=== PATIENT | male | born 1985 | race American Indian/Alaskan Native ===

== ENCOUNTER 2016-12-29 15:57 | Emergency (ER) | payer SELFPAY ==
[2016-12-29 16:30] VITALS: BP 126/80
--- NOTE | 2016-12-29 16:32 | Emergency Department Report ---
Entered by SASHA CALLES, acting as scribe for CRISTIN DAVID NP. Chief Complaint: Abdominal Pain Stated Complaint: abd pain Time Seen by Provider: 12/29/16 16:29 - HPI History of Present Illness: 31 y/o male presents with RUQ abd pain that started 3 days ago. Sx include chest "tightness", coughing and nausea. Pt endorses ETOH and tobacco use. - ROS Review of Systems: +RUQ abd pain +chest tightness +nausea +cough - Exam Vital Signs: Vital Signs 12/29/16 16:26 Temperature 98.3 F Pulse Rate 71 Respiratory 18 Rate Blood Pressure 126/80 O2 Sat by Pulse 100 Oximetry Physical Exam: Abd: soft, RUQ and epigastric tenderness Chest: chest wall non-tender Resp: no acute respiratory distress MSE screening note: Focused history and physical exam performed. Due to findings the following was ordered: xr, us, lab ED Disposition for MSE Condition: Stable This documentation as recorded by the scribe,SASHA CALLES,accurately reflects the service I personally performed and the decisions made by FRANKIE mccain TRACY M, NP.
[2016-12-29 16:41] LABS: Basophils % (Auto) 0.6 % (0.0-1.8); Hematocrit 42.2 % (35.5-45.6); Hemoglobin 13.7 gm/dl (11.8-15.2); Mean Corpuscular HGB Conc 32 % (32-34); Mean Corpuscular Hemoglobin 29 pg (28-32); Mean Corpuscular Volume 89 fl (84-94); Platelet Count 167 K/mm3 (140-440); Red Blood Count 4.76 M/mm3 (3.65-5.03); Red Cell Distribution Width 14.3 % (13.2-15.2); White Blood Count 6.2 K/mm3 (4.5-11.0)
[2016-12-29 19:08] LABS: Alanine Aminotransferase 12 units/L (7-56); Albumin 4.6 g/dL (3.9-5); Albumin/Globulin Ratio 2.1 %; Alkaline Phosphatase 69 units/L (35-129); Anion Gap 19 mmol/L; Blood Urea Nitrogen 14 mg/dL (9-20); Calcium 9.1 mg/dL (8.4-10.2); Carbon Dioxide 24 mmol/L (22-30); Chloride 106.1 mmol/L (98-107); Glucose 78 mg/dL (75-100); Lipase 28 units/L (13-60); Potassium 4.3 mmol/L (3.6-5.0); Sodium 145 mmol/L (137-145); Total Protein 6.8 g/dL (6.3-8.2)
[2016-12-29 19:32] LABS: Bilirubin,Urine NEG (Negative); Blood,Urine NEG (Negative); Ketones,Urine NEG (Negative); Leukocyte Esterase,Urine NEG (Negative); Mucus,Urine 3+ /HPF; Nitrite,Urine NEG (Negative); Protein,Urine <15 mg/dL mg/dL (Negative); RBC,Urine < 1.0 /HPF (0.0-6.0); Urobilinogen,Urine < 2.0 mg/dL (<2.0); WBC,Urine < 1.0 /HPF (0.0-6.0)
--- NOTE | 2016-12-29 21:05 | Ultrasound Report ---
FINAL REPORT EXAM: US ABDOMEN LIMITED HISTORY: ruq pain TECHNIQUE: Directed sonography of the right upper quadrant. PRIORS: None. FINDINGS: Gallbladder is of normal size and echogenicity without evidence of calculi. Wall thickness within normal limits. Intra-and extrahepatic bile ducts are of normal caliber. Liver has normal homogeneous echogenicity without focal abnormalities. Right kidney measures 10.9 cm in longest dimension and is grossly unremarkable. Visualized pancreatic parenchyma grossly unremarkable. IMPRESSION: 1. No acute findings.
--- NOTE | 2016-12-29 21:51 | Emergency Department Report ---
ED Abdominal Pain HPI - General Chief Complaint: Abdominal Pain Stated Complaint: TIGHTNESS IN CHEST/LIGHT HEADED Time Seen by Provider: 12/29/16 16:28 Source: patient Mode of arrival: Ambulatory Limitations: No Limitations - History of Present Illness Initial Comments: This is a 31-year-old male nontoxic, well nourished in appearance, no acute signs of distress that presents to the ED complaining of abdominal pain 3 days and chest tightness intermittent during coughing episode. Patient also states has been nauseated but denies any vomiting. Patient describes abdominal pain as sharp to the right upper quadrant. Patient denies any diarrhea, constipation , pelvic pain, vomiting, chest pain, shortness of breath, headache, stiff neck, fever, chills, numbness or tingling. Patient stated had very several symptoms in 2009 and was seen in [facility] ER and was given IV fluids with "nausea medication" and was discharged. Patient states allergies to Robitussin. Patient has history of GERD. Patient denies any recent travels, long car rides, recent hospital stay, calf pain, or swelling. MD Complaint: abdominal pain -: Gradual, days(s) (3) Location: RUQ Radiation: none Migration to: no migration Severity: mild Severity scale (0 -10): 6 Quality: sharp Consistency: constant Improves With: nothing Worsens With: nothing Associated Symptoms: nausea. denies: vomiting, diarrhea, fever, chills, constipation, dysuria, melena, hematuria, anorexia, syncope - Related Data Previous Rx's Medication Instructions Recorded Last Taken Type Amoxicillin [Trimox CAP] 500 mg PO Q8H #14 capsule 04/14/16 Unknown Rx Ibuprofen [Motrin] 800 mg PO Q8HR PRN #30 tablet 04/14/16 Unknown Rx Ibuprofen [Motrin 600 MG tab] 600 mg PO Q8H PRN #30 tablet 12/29/16 Unknown Rx predniSONE [Deltasone] 20 mg PO BID #10 tab 12/29/16 Unknown Rx Allergies Allergy/AdvReac Type Severity Reaction Status Date / Time guaifenesin [From Robitussin] Allergy Rash Verified 12/29/16 16:30 ED Review of Systems ROS: Stated complaint: TIGHTNESS IN CHEST/LIGHT HEADED Other details as noted in HPI Constitutional: denies: chills, fever Eyes: denies: eye pain, eye discharge, vision change ENT: denies: ear pain, throat pain Respiratory: denies: cough, shortness of breath, wheezing Cardiovascular: denies: chest pain, palpitations Endocrine: no symptoms reported Gastrointestinal: denies: abdominal pain, nausea, diarrhea Genitourinary: denies: urgency, dysuria Musculoskeletal: denies: back pain, joint swelling, arthralgia Skin: denies: rash, lesions Neurological: denies: headache, weakness, paresthesias Psychiatric: denies: anxiety, depression Hematological/Lymphatic: denies: easy bleeding, easy bruising ED Past Medical Hx - Past Medical History Hx GERD: Yes Additional medical history: stomach ulcer - Surgical History Additional Surgical History: varicose veins right testicle 2009 - Social History Smoking Status: Current Every Day Smoker Substance Use Type: None - Medications Home Medications: Home Medications Medication Instructions Recorded Confirmed Last Taken Type Amoxicillin [Trimox CAP] 500 mg PO Q8H #14 capsule 04/14/16 Unknown Rx Ibuprofen [Motrin] 800 mg PO Q8HR PRN #30 tablet 04/14/16 Unknown Rx Ibuprofen [Motrin 600 MG tab] 600 mg PO Q8H PRN #30 tablet 12/29/16 Unknown Rx predniSONE [Deltasone] 20 mg PO BID #10 tab 12/29/16 Unknown Rx ED Physical Exam - General Limitations: No Limitations General appearance: alert, in no apparent distress - Head Head exam: Present: atraumatic, normocephalic, normal inspection - Eye Eye exam: Present: normal appearance, PERRL, EOMI. Absent: scleral icterus, conjunctival injection, nystagmus, periorbital swelling, periorbital tenderness Pupils: Present: normal accommodation - ENT ENT exam: Present: normal exam, normal orophraynx, mucous membranes moist, TM's normal bilaterally, normal external ear exam - Neck Neck exam: Present: normal inspection, full ROM. Absent: tenderness, meningismus, lymphadenopathy, thyromegaly - Respiratory Respiratory exam: Present: normal lung sounds bilaterally. Absent: respiratory distress, wheezes, rales, rhonchi, stridor, chest wall tenderness, accessory muscle use, decreased breath sounds, prolonged expiratory - Cardiovascular Cardiovascular Exam: Present: regular rate, normal rhythm, normal heart sounds. Absent: bradycardia, tachycardia, irregular rhythm, systolic murmur, diastolic murmur, rubs, gallop - GI/Abdominal GI/Abdominal exam: Present: soft, normal bowel sounds. Absent: distended, tenderness, guarding, rebound, rigid, diminished bowel sounds, organomegaly, mass, bruit, pulsatile mass, hernia, other (epigastric pain) - Expanded GI/Abdominal Exam Expanded GI/Abdominal exam: Absent: psoas sign, obturator sign, heel tap sign, Grey's sign, Rovsing's sign, tenderness at Mcburney's Point, ascites - Rectal Rectal exam: Present: deferred - Extremities Exam Extremities exam: Present: normal inspection, full ROM, normal capillary refill. Absent: tenderness, pedal edema, joint swelling, calf tenderness - Back Exam Back exam: Present: normal inspection, full ROM. Absent: tenderness, CVA tenderness (R), CVA tenderness (L), muscle spasm, paraspinal tenderness, vertebral tenderness, rash noted - Neurological Exam Neurological exam: Present: alert, oriented X3, CN II-XII intact, normal gait, reflexes normal - Psychiatric Psychiatric exam: Present: normal affect, normal mood - Skin Skin exam: Present: warm, dry, intact, normal color. Absent: rash ED Course Vital Signs 12/29/16 16:26 Temperature 98.3 F Pulse Rate 71 Respiratory 18 Rate Blood Pressure 126/80 O2 Sat by Pulse 100 Oximetry - Reevaluation(s) Reevaluation #1: 12/29/16 22:02 Patient is talking in full sentences with no signs of distress. Reevaluation #2: 12/29/16 22:02 Patient tolerated PO challenge well with no signs of n/v. ED Medical Decision Making - Lab Data Result diagrams: 12/29/16 16:33 12/29/16 16:33 - Medical Decision Making ED course; this is a 31-year-old male that presents with costochondritis and abdominal pain 1- patient was examined by myself. By mouth challenge has been obtained and patient was able to eat without any nausea or vomiting. Currently at discharge patient denies any chest tightness or abdominal pain. 2- patient will be treated with ibuprofen and prednisone at the time of discharge for costochondritis. 3- patient was instructed to follow-up with his primary care doctor in 3-5 days or symptoms such as chest pain, shortness of breath, fever, chills, headache, stiff neck, nausea or vomiting, abdominal pain return to emergency room as was possible. 4- At time time of discharge, the patient does not seem toxic or ill in appearance. No acute signs of distress noted. Patient agrees to discharge treatment plan of care. No further questions noted by the patient. 5- EKG, chest x-ray, CBC, BMP, lipase, hepatic panel, troponin, cardiac CK has obtained all normal findings. Critical care attestation.: If time is entered above; I have spent that time in minutes in the direct care of this critically ill patient, excluding procedure time. ED Disposition Clinical Impression: Costochondritis Abdominal pain Qualifiers: Abdominal location: right upper quadrant Qualified Code(s): R10.11 - Right upper quadrant pain Disposition: - TO HOME OR SELFCARE Is pt being admited?: No Does the pt Need Aspirin: No Condition: Stable Instructions: Costochondritis (ED), Acute Abdominal Pain (ED) Additional Instructions: follow-up with your primary care doctor in 3-5 days or symptoms such as chest pain, shortness of breath, fever, chills, headache, stiff neck, nausea or vomiting, abdominal pain return to emergency room as was possible. Take prednisone and ibuprofen as prescribed. Prescriptions: Ibuprofen [Motrin 600 MG tab] 600 mg PO Q8H PRN #30 tablet PRN Reason: Pain predniSONE [Deltasone] 20 mg PO BID #10 tab Referrals: PRIMARY CAREMD [Primary Care Provider] - 3-5 Days JESSICA SINGH MD [Staff Physician] - 3-5 Days [facility] [Outside] - 3-5 Days [facility] [Outside] - 3-5 Days Forms: Work/School Release Form(ED)
--- NOTE | 2016-12-29 22:02 | XRay Report ---
FINAL REPORT EXAM: XR CHEST ROUTINE 2V HISTORY: chest pain TECHNIQUE: Frontal and lateral chest x-ray. PRIORS: None. FINDINGS: Cardiac and mediastinal silhouette within normal limits. Lungs are normally expanded. No focal consolidation, pleural effusion or apparent pneumothorax. Probable artifact projects over lower neck region. IMPRESSION: 1. No acute findings.
[2016-12-29 22:47] LABS: Creatine Kinase 148 units/L (55-170)
== END 2016-12-29 23:23 | disposition home or self-care (01) ==
LOC: ED 15:57
DX: M94.0 Chondrocostal junction syndrome [Tietze] (principal); R10.11 Right upper quadrant pain; K21.9 Gastro-esophageal reflux disease without esophagitis; F17.200 Nicotine dependence, unspecified, uncomplicated; Z88.8 Allergy status to other drugs, medicaments and biological substances
CPT/HCPCS: 36415; 71020; 76705; 80053; 81001; 82550; 82553; 83690; 84484; 85025; 93005; 93010